=== PATIENT | female | born 1985 | race Hispanic/Latino ===

== ENCOUNTER 2022-02-19 07:28 | Outpatient (CLI) | payer BC ==
[2022-02-19] MEDS ORDERED: Iopamidol 370 76% 100 ML VIAL ONE (10:00)
== END 2022-02-19 07:29 | disposition home or self-care (01) ==
LOC: CT 07:28
PROVIDERS: ATTEND Obstetrics & Gynecology Gynecologic Oncology
DX: C54.1 Malignant neoplasm of endometrium (principal); N20.0 Calculus of kidney; E04.1 Nontoxic single thyroid nodule
CPT/HCPCS: 71260; 74177; Q9967

== ENCOUNTER 2022-03-18 07:48 | Outpatient (CLI) | payer BC | END 2022-03-18 07:49 | disposition home or self-care (01) | LOC: SCSMRI 07:48 | PROVIDERS: ATTEND Nurse Practitioner Family | DX: C54.1 Malignant neoplasm of endometrium (principal); N83.8 Other noninflammatory disorders of ovary, fallopian tube and broad ligament; E28.2 Polycystic ovarian syndrome | CPT/HCPCS: 72197 ==

== ENCOUNTER 2023-09-22 13:00 | Outpatient (CLI) | payer BC | END 2023-09-22 13:01 | disposition home or self-care (01) | LOC: BICULT 13:00 | PROVIDERS: ATTEND Nurse Practitioner Family | DX: C54.1 Malignant neoplasm of endometrium (principal); E04.9 Nontoxic goiter, unspecified; E04.1 Nontoxic single thyroid nodule | CPT/HCPCS: 76536 ==

== ENCOUNTER 2023-10-06 12:32 | Day surgery (SDC) | payer BC ==
[2023-10-06] MEDS ORDERED: Sodium Bicarbonate 2.5 MEQ/5 ML SDV ONE (12:57)
[2023-10-06] MEDS ORDERED: Lidocaine 1% PF 5 ML VIAL ONE (12:57)
[2023-10-06 14:10] VITALS: BP 111/88; TEMP 98.1
== END 2023-10-06 13:58 | disposition home or self-care (01) ==
LOC: ULT 12:32
PROVIDERS: ATTEND Nurse Practitioner Family
PROC: 0GBH3ZX Excision of Right Thyroid Gland Lobe, Percutaneous Approach, Diagnostic (ICD-10-PCS; principal; 2023-10-06)
DX: C54.1 Malignant neoplasm of endometrium (principal); E07.89 Other specified disorders of thyroid; I10 Essential (primary) hypertension; Z98.890 Other specified postprocedural states; Z79.899 Other long term (current) drug therapy
CPT/HCPCS: 10005; 88173

== ENCOUNTER 2023-11-14 12:31 | Outpatient (CLI) | payer BC ==
[2023-11-14 13:42] LABS: Hematocrit 39.6 % (34.9-44.5)
[2023-11-14 13:57] LABS: Anion Gap 15 mmol/L (10-20); BUN (Urea Nitrogen) 21 mg/dL (7.0-18.7); Calc. Creatinine Clearance 0 mL/min (70-130); Carbon Dioxide 28 mmol/L (22-29); Chloride 101 mmol/L (98-107); Estimated GFR 90; Glucose 117 mg/dL (70-105); Potassium 3.8 mmol/L (3.5-5.1); Sodium 140 mmol/L (136-145)
== END 2023-11-14 12:32 | disposition home or self-care (01) ==
LOC: LABBT 12:31
PROVIDERS: ATTEND Specialist
DX: Z01.818 Encounter for other preprocedural examination (principal); R22.1 Localized swelling, mass and lump, neck; E04.1 Nontoxic single thyroid nodule; C80.1 Malignant (primary) neoplasm, unspecified
CPT/HCPCS: 80048; 85014; 93005; 93010

== ENCOUNTER 2024-01-27 12:35 | Outpatient (CLI) | payer BC | END 2024-01-27 12:36 | disposition home or self-care (01) | LOC: NM 12:35 | PROVIDERS: ATTEND Internal Medicine Endocrinology, Diabetes & Metabolism | DX: C73 Malignant neoplasm of thyroid gland (principal) | CPT/HCPCS: 79005; A9517 ==

== ENCOUNTER 2024-02-27 12:32 | Outpatient (CLI) | payer BC | END 2024-02-27 12:33 | disposition home or self-care (01) | LOC: BICULT 12:32 | PROVIDERS: ATTEND Internal Medicine Endocrinology, Diabetes & Metabolism | DX: C73 Malignant neoplasm of thyroid gland (principal) | CPT/HCPCS: 76536 ==